=== PATIENT | male | born 1965 | race Caucasian/White ===

== ENCOUNTER 2020-03-16 21:17 | Emergency (ER) | payer OTHER ==
[~2020-03-16] VITALS: Ht 185.4 cm; Wt 131.5 kg
[2020-03-16] MEDS ORDERED: VENTOLIN HFA18 GM INH (21:51)
--- NOTE | 2020-03-17 07:20 | EKG ---
[facility] [address] [facility] [place] [address] Signed Normal sinus rhythm Nonspecific T wave abnormality Abnormal ECG No previous ECGs available Confirmed by ALBERTO PARTIDA MD ([id number]) on 03/17/2020 7:20:04 AM Electronically Signed By: ALBERTO PARTIDA MD 03/17/20719 PATIENT NAME: ALEISHA CABRERA Electrocardiogram DATE OF : 67 PHYSICIAN: ALBERTO PARTIDA MD REPORT #: [id number] REPORT IS CONFIDENTIAL AND NOT TO BE RELEASED WITHOUT AUTHORIZATION
== END 2020-03-16 23:11 | disposition home or self-care (01) ==
LOC: ED 21:17
DX: I49.1 Atrial premature depolarization (principal); Z87.891 Personal history of nicotine dependence; Z88.6 Allergy status to analgesic agent
CPT/HCPCS: 71045; 80053; 83735; 84484; 85025; 93005; 93010; 99285-25

== ENCOUNTER 2023-01-23 16:10 | Emergency (ER) | payer OTHER ==
[~2023-01-23] VITALS: Ht 185.4 cm; Wt 167.8 kg
[~2023-01-23 16:10] MED LIST: VENTOLIN HFA18 GM INH
[2023-01-23] MEDS ORDERED: ARIPIPRAZOLE20 MG PO (16:49)
[2023-01-23] MEDS ORDERED: DULOXETINE HCL20 MG PO (16:50)
[2023-01-23] MEDS ORDERED: HALOPERIDOL5 MG PO (16:50)
[2023-01-23] MEDS ORDERED: HYDRALAZINE HCL50 MG PO (16:51)
[2023-01-23] MEDS ORDERED: HALOPERIDOL2 MG PO (16:51)
[2023-01-23] MEDS ORDERED: LAMICTAL150 MG PO (17:20)
[2023-01-23] MEDS ORDERED: TRIHEXYPHENIDYL2 MG PO (17:21)
[2023-01-23] MEDS ORDERED: LIPITOR20 MG PO (17:21)
[2023-01-23] MEDS ORDERED: CEPHALEXIN500 M1 PO (17:59)
[2023-01-23] MEDS ORDERED: DOXYCYCLINE HY100 MG PO (17:59)
[2023-01-23 18:54] VITALS: BP 132/71
[2023-01-24] MEDS ORDERED: METFORMIN HCL500 MG PO (08:44)
[2023-01-24] MEDS ORDERED: HYDROXYZINE HCL50 MG PO (08:47)
[2023-01-24] MEDS ORDERED: MAXZIDE 75 MG-501 EA PO (08:49)
[2023-01-24] MEDS ORDERED: TOPROL XL50 MG PO (08:49)
--- NOTE | 2023-01-24 17:41 | EKG ---
[facility] [address] [facility] [place], [place] [address] Signed Atrial fibrillation with rapid ventricular response with premature ventricular or aberrantly conducted complexes Nonspecific ST and T wave abnormality Abnormal ECG No previous ECGs available Confirmed by JOSTIN SON MD ([id number]) on 01/24/2023 5:41:30 PM Electronically Signed By: JOSTIN SON MD 01/24/23 174 PATIENT NAME: ALEISHA CABRERA Electrocardiogram DATE OF : 67 PHYSICIAN: JOSTIN SON MD REPORT #: [id number] REPORT IS CONFIDENTIAL AND NOT TO BE RELEASED WITHOUT AUTHORIZATION
== END 2023-01-23 18:54 | disposition home or self-care (01) ==
LOC: ED 16:10
DX: L03.115 Cellulitis of right lower limb (principal); J44.9 Chronic obstructive pulmonary disease, unspecified; K21.9 Gastro-esophageal reflux disease without esophagitis; I48.91 Unspecified atrial fibrillation; I12.9 Hypertensive chronic kidney disease with stage 1 through stage 4 chronic kidney disease, or unspecified chronic kidney disease; N18.30 Chronic kidney disease, stage 3 unspecified; Z87.891 Personal history of nicotine dependence; Z88.8 Allergy status to other drugs, medicaments and biological substances; Z79.899 Other long term (current) drug therapy; Z79.84 Long term (current) use of oral hypoglycemic drugs
CPT/HCPCS: 36415; 71260; 80053; 82803; 83605; 83880; 84484; 85025; 93005; 93010; 93971; J0696; J7030; Q9967

== ENCOUNTER 2023-09-15 12:36 | Observation (INO) | payer OTHER ==
[~2023-09-15] VITALS: Ht 185.4 cm; Wt 179.1 kg
[~2023-09-15 12:36] MED LIST changes: +ARIPIPRAZOLE20 MG PO; +CEPHALEXIN500 M1 PO; +DOXYCYCLINE HY100 MG PO; +DULOXETINE HCL20 MG PO; +HALOPERIDOL2 MG PO; +HALOPERIDOL5 MG PO; +HYDRALAZINE HCL50 MG PO; +HYDROXYZINE HCL50 MG PO; +LAMICTAL150 MG PO; +LIPITOR20 MG PO; +MAXZIDE 75 MG-501 EA PO; +METFORMIN HCL500 MG PO; +TOPROL XL50 MG PO; +TRIHEXYPHENIDYL2 MG PO
[2023-09-15 14:49] LABS: BASOPHILS 0.1 % (0-2); HEMATOCRIT 37.9 % (35.0-50.0); HEMOGLOBIN 12.8 g/dL (12.0-18.0); LYMPHOCYTES 2.3 % (24-44); MCH 28.6 (27-36); MCHC 33.8 g/dl (30-36); MCV 84.5 fl (81-99); NEUTROPHILS 95.6 % (39-80); PLATELET COUNT 237 K/uL (140-440); RBC 4.49 M/ul (4.3-5.7); RDW 15.7 (10.5-15.0)
[2023-09-15 15:11] LABS: LACTIC ACID, BLOOD 1.2 mmol/L (0.4-2.0)
[2023-09-15 15:17] LABS: ALBUMIN 2.9 g/dL (3.4-5.0); ALBUMIN/GLOBULIN RATIO 0.73 (1.1-2.4); BILIRUBIN, TOTAL 0.9 ng/dL (0.2-1.0); BUN/CREATININE RATIO 12.86 (6.0-28.6); CALCIUM 8.4 mg/dL (8.5-10.1); CREATININE, SERUM 1.71 mg/dL (0.70-1.30); PROTEIN, TOTAL 6.9 g/dL (6.4-8.2)
--- NOTE | 2023-09-15 18:02 | EKG ---
[facility] [address] [facility] [place], [place] [address] Signed Atrial fibrillation with rapid ventricular response Nonspecific ST abnormality Abnormal ECG When compared with ECG of 24-JAN-2023 07:40, No significant change was found Confirmed by SHRUTHI EMERY MD ([id number]) on 09/15/2023 6:02:09 PM Electronically Signed By: SHRUTHI EMERY 09/15/23 180 PATIENT NAME: ALEISHA CABRERA Electrocardiogram DATE OF : 67 PHYSICIAN: SHRUTHI EMERY REPORT #: [id number] REPORT IS CONFIDENTIAL AND NOT TO BE RELEASED WITHOUT AUTHORIZATION
[2023-09-15 18:04] VITALS: BP 127/80
[2023-09-15 19:40] VITALS: BP 119/65
[2023-09-15 21:49] LABS: ANION GAP 10.8 (7-21); BUN/CREATININE RATIO 13.58 (6.0-28.6); CALCIUM 7.8 mg/dL (8.5-10.1); CREATININE, SERUM 1.62 mg/dL (0.70-1.30); MAGNESIUM 1.3 mg/dL (1.8-2.4); POTASSIUM 3.8 mmol/L (3.5-5.1)
[2023-09-16 01:50] VITALS: BP 122/62
[2023-09-16 05:22] LABS: HEMATOCRIT 36.5 % (35.0-50.0); HEMOGLOBIN 12.1 g/dL (12.0-18.0); MCH 28.3 (27-36); MCHC 33.2 g/dl (30-36); MCV 85.4 fl (81-99); PLATELET COUNT 206 K/uL (140-440); RBC 4.27 M/ul (4.3-5.7); RDW 15.8 (10.5-15.0)
[2023-09-16 05:32] LABS: BUN/CREATININE RATIO 14.2 (6.0-28.6); CALCIUM 8.4 mg/dL (8.5-10.1); CREATININE, SERUM 1.69 mg/dL (0.70-1.30)
[2023-09-16 05:46] LABS: BANDS, MANUAL DIFF 12; LYMPHOCYTES, MANUAL DIFF 5; MONOCYTES, MANUAL DIFF 1; NEUTROPHILS, MANUAL DIFF 82
[2023-09-16 05:49] VITALS: BP 140/68
[2023-09-16] MEDS ORDERED: BACTRIM DS TAB1 EACH PO (10:34)
[2023-09-16] MEDS ORDERED: MELATONIN5 M2 PO (10:42)
[2023-09-16] MEDS ORDERED: ZYRTEC10 MG PO (10:43)
[2023-09-16] MEDS ORDERED: OMEPRAZOLE20 MG PO (10:43)
[2023-09-16] MEDS ORDERED: VENTOLIN HFA18 GM INH (10:45)
[2023-09-16] MEDS ORDERED: IMODIUM A-D2 M2 PO (10:45)
[2023-09-16] MEDS ORDERED: ASMANEX HFA13 G1 INH (10:46)
[2023-09-16] MEDS ORDERED: K-TAB10 MEQ PO (10:47)
[2023-09-16] MEDS ORDERED: METFORMIN HCL500 M3 PO (10:48)
[2023-09-16] MEDS ORDERED: CELEBREX200 MG PO (10:49)
[2023-09-16] MEDS ORDERED: LIPITOR20 MG PO (10:49)
[2023-09-16] MEDS ORDERED: PEPCID40 MG PO (10:50)
[2023-09-16 10:58] VITALS: BP 142/69
[2023-09-16 14:56] VITALS: BP 158/69
[2023-09-16 18:03] VITALS: BP 149/67
[2023-09-16 20:36] VITALS: BP 134/71
[2023-09-17 01:20] VITALS: BP 142/75
[2023-09-17 05:33] LABS: BASOPHILS 0.4 % (0-2); HEMATOCRIT 34.1 % (35.0-50.0); HEMOGLOBIN 11.4 g/dL (12.0-18.0); LYMPHOCYTES 6.4 % (24-44); MCH 28.3 (27-36); MCHC 33.4 g/dl (30-36); MCV 84.9 fl (81-99); MONOCYTES 5.1 % (0-12); NEUTROPHILS 88.1 % (39-80); PLATELET COUNT 220 K/uL (140-440); RBC 4.01 M/ul (4.3-5.7); RDW 15.7 (10.5-15.0)
[2023-09-17 05:48] LABS: ALBUMIN 2.5 g/dL (3.4-5.0); ALBUMIN/GLOBULIN RATIO 0.57 (1.1-2.4); ANION GAP 11.9 (7-21); BILIRUBIN, TOTAL 0.3 ng/dL (0.2-1.0); BUN/CREATININE RATIO 19.04 (6.0-28.6); CALCIUM 8.9 mg/dL (8.5-10.1); CREATININE, SERUM 1.47 mg/dL (0.70-1.30); POTASSIUM 3.9 mmol/L (3.5-5.1); PROTEIN, TOTAL 6.9 g/dL (6.4-8.2)
[2023-09-17 06:51] VITALS: BP 148/75
[2023-09-17 09:33] VITALS: BP 145/72
[2023-09-17] MEDS ORDERED: CEFTRIAXONE1 G1 IV (11:06)
[2023-09-17] MEDS ORDERED: DAPTOMYCIN500 MG IV (11:07)
[2023-09-17] MEDS ORDERED: IPRAT-ALBUT 0.5-3 ML INH (11:08)
[2023-09-17] MEDS ORDERED: PREDNISONE20 MG PO (11:12)
== END 2023-09-17 13:00 | disposition home or self-care (01) ==
LOC: ED 12:36 → MS 12:38
PROVIDERS: Emergency Medicine; ADMIT Internal Medicine; ATTEND Internal Medicine
DX: L03.115 Cellulitis of right lower limb (principal); E66.01 Morbid (severe) obesity due to excess calories; I48.91 Unspecified atrial fibrillation; E11.9 Type 2 diabetes mellitus without complications; J45.901 Unspecified asthma with (acute) exacerbation; K21.9 Gastro-esophageal reflux disease without esophagitis; I10 Essential (primary) hypertension; E78.5 Hyperlipidemia, unspecified; J44.9 Chronic obstructive pulmonary disease, unspecified; Z79.84 Long term (current) use of oral hypoglycemic drugs; Z88.8 Allergy status to other drugs, medicaments and biological substances; Z79.899 Other long term (current) drug therapy
CPT/HCPCS: 36415; 71250; 80048; 80053; 82553; 83605; 83735; 84484; 85025; 87040; 93005; 93010; 93971; 94640; 94760; 94762; 96361; 96365; 96366; 96367; 96372; 96375; 96376; 97161; 99284-25; A9270; G0378; J0696; J0878; J1650; J1815; J2930; J3475; J7030